=== PATIENT | male | born 1935 | race Caucasian/White ===

== ENCOUNTER 2021-08-23 10:42 | Day surgery (SDC) | payer OTHER, MEDICARE ==
[2021-08-20 14:35] VITALS: BMI 23.6
[2021-08-23] MEDS ORDERED: MIDAZOLAM HCL 2 MG/2 ML SINGLE DOSE VIAL ONE (13:11)
[2021-08-23] MEDS ORDERED: PROPOFOL 20 ML ONE ×2 (13:11)
[2021-08-23] MEDS ORDERED: SUCCINYLCHOLINE CHLORIDE 200 MG/10 ML SYRINGE ONE (13:13)
[2021-08-23] MEDS ORDERED: LIDOCAINE 1%/EPI 1:100000 (20 ML MULTI DOSE VIAL) ONE (13:24)
[2021-08-23] MEDS ORDERED: PROMETHAZINE HCL 25 MG/1 ML VIAL IVPUSH PRN (13:26)
[2021-08-23] MEDS ORDERED: ONDANSETRON 4 MG/2 ML VIAL IVPUSH PRN (13:26)
[2021-08-23] MEDS ORDERED: LACTATED RINGERS SOLUTION 1,000 ML IV SCH ×2 (13:30→15:45)
[2021-08-23] MEDS ORDERED: LIDOCAINE HCL/PF 2% SDV 5ML VIAL ONE (13:38)
[2021-08-23] MEDS ORDERED: LIDOCAINE 1%/EPI 1:100000 (20 ML MULTI DOSE VIAL) IJ ONE (13:43)
[2021-08-23] MEDS ORDERED: ceFAZolin SODIUM 1 GM VIAL ONE (13:44)
[2021-08-23] MEDS ORDERED: SODIUM CHLORIDE 0.9% P/F 10 ML VIAL IJ ONE (13:44)
[2021-08-23] MEDS ORDERED: DEXAMETHASONE SOD PHOSPHATE 4 MG/1 ML VIAL ONE (13:48)
[2021-08-23] MEDS ORDERED: KETOROLAC TROMETHAMINE 30 MG/1 ML VIAL ONE (13:48)
[2021-08-23] MEDS ORDERED: ONDANSETRON 4 MG/2 ML VIAL ONE (13:48)
[2021-08-23] MEDS ORDERED: BACITRACIN 15 GM TUBE TOPICAL OINTMENT ONE (14:50)
[2021-08-23] MEDS ORDERED: oxyCODONE HCL 5 MG TABLET PO PRN ×2 (15:44)
[2021-08-23] MEDS ORDERED: ONDANSETRON 4 MG/2 ML VIAL IVPB PRN (15:44)
[2021-08-23 16:56] VITALS: BP 134/94; PULSE 84; TEMP 97.2
== END 2021-08-23 16:25 | disposition home or self-care (01) ==
LOC: FASU 10:42
PROVIDERS: ATTEND Plastic Surgery
PROC: 0NB00ZZ Excision of Skull, Open Approach (ICD-10-PCS; principal; 2021-08-23 13:59)
DX: S01.00XA Unspecified open wound of scalp, initial encounter (principal); X58.XXXA Exposure to other specified factors, initial encounter; Y93.9 Activity, unspecified; Y92.9 Unspecified place or not applicable
CPT/HCPCS: 94760